=== PATIENT | male | born 1975 | race Caucasian/White ===

== ENCOUNTER → 2016-05-16 | Outpatient (CLI) | payer SELFPAY ==
[2016-05-20 07:25] LABS: Mis test requested (Blood) Paternity Testing
== END | disposition home or self-care (01) ==
LOC: LABWHC1 13:07
PROVIDERS: ATTEND Pathology Anatomic Pathology & Clinical Pathology
DX: Z02.81 Encounter for paternity testing (principal)
CPT/HCPCS: 36415